=== PATIENT | female | born 1930 | race Caucasian/White ===

== ENCOUNTER 2019-07-27 19:43 | Outpatient (CLI) | payer OTHER | END 2019-07-27 19:44 | disposition home or self-care (01) | LOC: MADLAB 19:43 | PROVIDERS: ATTEND Student in an Organized Health Care Education/Training Program | DX: E07.89 Other specified disorders of thyroid (principal); R94.6 Abnormal results of thyroid function studies | CPT/HCPCS: 84443 ==